=== PATIENT | female | born 1945 | race Hispanic/Latino ===

== ENCOUNTER 2024-03-02 11:00 | Inpatient (IN) | payer OTHER, MEDICARE ==
[~2024-03-02] VITALS: Ht 160 cm; Wt 76.7 kg
[2024-03-05 14:07] LABS: BASOPHILS # (AUTO) 0.04 K/uL (0.00-0.20); BASOPHILS % (AUTO) 0.7 % (0.0-5.0); EOSINOPHILS # (AUTO) 0.14 K/uL (0.00-0.70); EOSINOPHILS % (AUTO) 2.5 % (0.0-8.0); HEMATOCRIT 37.5 % (36-48); IMMATURE GRANULOCYTE ABSOLUTE 0.03 K/uL (0-1); LYMPHOCYTES # (AUTO) 2.2 K/uL (1.0-4.8); LYMPHOCYTES % (AUTO) 39.2 % (21.0-51.0); MEAN CORPUSCULAR HEMOGLOBIN 30.5 pg (27.0-33.0); MEAN CORPUSCULAR HGB CONC 32.5 g/dL (32.0-36.0); MEAN CORPUSCULAR VOLUME 93.8 fL (79-99); MONOCYTES # (AUTO) 0.5 K/uL (0.1-1.0); MONOCYTES % (AUTO) 9.6 % (3.0-13.0); NEUTROPHILS # (AUTO) 2.7 K/uL (1.8-7.7); NEUTROPHILS % (AUTO) 47.5 % (40.0-77.0); PLATELET COUNT (AUTO) 270 K/uL (130-400); RED CELL DISTRIBUTION WIDTH 13.8 % (11.0-15.5); WHITE BLOOD COUNT (AUTO) 5.6 K/uL (4.8-10.8)
[2024-03-05 14:16] VITALS: BP 118/82; PULSE 78; RESP 16
[2024-03-05] MEDS ORDERED: MIRA25TA PO (14:20)
[2024-03-05] MEDS ORDERED: LOSA25TA41 PO (14:20)
[2024-03-05] MEDS ORDERED: BETA1TAB20 PO (14:20)
[2024-03-05] MEDS ORDERED: MECL-226 PO (14:20)
[2024-03-05] MEDS ORDERED: SIMV-46 PO (14:20)
[2024-03-05 14:21] LABS: PROTHROMBIN TIME 11.8 SEC (9.6-11.6)
[2024-03-05 14:22] LABS: PARTIAL THROMBOPLASTIN TIME 28.6 SEC (26.3-35.5)
[2024-03-05 14:27] LABS: ALBUMIN 3.7 g/dL (3.5-5.0); BILIRUBIN,TOTAL 0.5 mg/dL (0.2-1.0); CREATININE 0.7 mg/dL (0.5-1.0); TOTAL PROTEIN, SERUM 7.1 g/dL (6.0-8.3)
[2024-03-07] VITALS (20 sets, daily range): BP systolic 117–150; BP diastolic 74–90; PULSE 64–95; RESP 14–20; O2SAT 97–99
[2024-03-07] MEDS ORDERED: INVANZ 1GM+NS 50ML IVPB 50 ML IV ONE (07:00)
[2024-03-07] MEDS ORDERED: FAMOTIDINE 20MG VIAL IV ONE (07:13)
[2024-03-07] MEDS ORDERED: HYDROMORPHONE 1 MG INJ ONE (07:13)
[2024-03-07] MEDS ORDERED: PHENYLEPHRINE HCL 10 MG/ML 1ML VIAL IV ONE ×2 (07:18→09:29)
[2024-03-07] MEDS ORDERED: ROCURONIUM BROMIDE 10MG/1ML 5ML VL ONE (07:20)
[2024-03-07] MEDS ORDERED: NEOSTIGMINE METHYLSULFATE 1MG/ML IV ONE (07:20)
[2024-03-07] MEDS ORDERED: LIDOCAINE PF 100MG/5ML (2%) SYRINGE 5ML ONE (07:20)
[2024-03-07] MEDS ORDERED: FENTANYL CITRATE PF 50 MCG/1 ML 2ML VIAL ONE ×2 (07:20→09:23)
[2024-03-07] MEDS ORDERED: GLYCOPYRROLATE 0.2 MG/ML 5 ML VIAL ONE (07:20)
[2024-03-07] MEDS ORDERED: PROPOFOL 10 MG/ML 20ML VIAL IV ONE (07:20)
[2024-03-07] MEDS ORDERED: ONDANSETRON 4MG INJ ONE (07:20)
[2024-03-07] MEDS ORDERED: LACTATED RINGERS 1000ML 1,000 ML IV ONE (07:51)
[2024-03-07] MEDS: BUPIVACAINE/PF 0.5% 30ML VIAL ONE (08:44)
[2024-03-07] MEDS: LIDOCAINE 1%-EPI 1:100,000 20 ML VIAL ONE (08:44)
[2024-03-07] MEDS ORDERED: INDOCYANINE GREEN 25 MG VIAL IJ ONE (10:07)
[2024-03-07] MEDS ORDERED: INSULIN HUMULIN R 100 UNIT/ML 3ML SQ PRN (11:30)
[2024-03-07] MEDS: FENTANYL CITRATE PF 50 MCG/1 ML 2ML VIAL ONE (11:39)
[2024-03-07] MEDS: ONDANSETRON 4MG INJ IVP PRN (13:44)
[2024-03-07] MEDS: HYDROCODONE/ACETAMINOPHEN 5/325 MG TAB PO PRN (13:44)
[2024-03-07] MEDS: MORPHINE 4 MG SYG IV PRN (17:53)
[2024-03-07] MEDS: FAMOTIDINE 20MG VIAL IV SCH (20:21)
[2024-03-07] MEDS ORDERED: HYDR12.54 PO (22:29)
[2024-03-07] MEDS ORDERED: LOSA50TA64 PO (22:29)
[2024-03-08] VITALS (8 sets, daily range): BP systolic 119–153; BP diastolic 62–84; PULSE 65–90; RESP 17–18; O2SAT 94–97
[2024-03-08] MEDS ORDERED: MAGNESIUM 2GM PREMIX 50ML 50 ML IV PRN (00:30)
[2024-03-08] MEDS ORDERED: POTASSIUM CHLORIDE 20MEQ/100ML 100 ML IV PRN ×2 (00:30)
[2024-03-08] MEDS ORDERED: POTASSIUM CHLORIDE 10% ELIXIR 20 MEQ/15 ML UDCUP PO PRN (00:30)
[2024-03-08] MEDS: D5W-1/2 NS/20MEQ KCL 1,000 ML IV SCH (03:44)
[2024-03-08 05:18] LABS: BASOPHILS # (AUTO) 0.02 K/uL (0.00-0.20); BASOPHILS % (AUTO) 0.3 % (0.0-5.0); EOSINOPHILS # (AUTO) 0.01 K/uL (0.00-0.70); EOSINOPHILS % (AUTO) 0.1 % (0.0-8.0); HEMATOCRIT 33.7 % (36-48); IMMATURE GRANULOCYTE ABSOLUTE 0.04 K/uL (0-1); LYMPHOCYTES # (AUTO) 1.2 K/uL (1.0-4.8); LYMPHOCYTES % (AUTO) 15.9 % (21.0-51.0); MEAN CORPUSCULAR HEMOGLOBIN 30.9 pg (27.0-33.0); MEAN CORPUSCULAR HGB CONC 33.2 g/dL (32.0-36.0); MEAN CORPUSCULAR VOLUME 92.8 fL (79-99); MONOCYTES # (AUTO) 0.7 K/uL (0.1-1.0); MONOCYTES % (AUTO) 9.4 % (3.0-13.0); NEUTROPHILS # (AUTO) 5.7 K/uL (1.8-7.7); NEUTROPHILS % (AUTO) 73.8 % (40.0-77.0); PLATELET COUNT (AUTO) 233 K/uL (130-400); RED BLOOD CELL COUNT(AUTO) 3.63 MIL/uL (4.00-5.50); WHITE BLOOD COUNT (AUTO) 7.8 K/uL (4.8-10.8)
[2024-03-08 06:10] LABS: CREATININE 0.7 mg/dL (0.5-1.0); POTASSIUM 3.3 mmol/L (3.5-5.1)
[2024-03-08] MEDS: KCL 20 MEQ ERTAB PO PRN (06:25)
[2024-03-08] MEDS: ENOXAPARIN SODIUM 40 MG/0.4 ML SYRINGE SQ SCH (08:26)
[2024-03-08] MEDS: MAGNESIUM 2GM PREMIX 50ML 50 ML IV PRN (15:56)
[2024-03-09 00:53] VITALS: BP 158/88; PULSE 85; RESP 18
[2024-03-09] MEDS: ACETAMINOPHEN 325 MG TAB PO PRN (02:16)
[2024-03-09 05:32] LABS: BASOPHILS # (AUTO) 0.04 K/uL (0.00-0.20); BASOPHILS % (AUTO) 0.4 % (0.0-5.0); EOSINOPHILS # (AUTO) 0.15 K/uL (0.00-0.70); EOSINOPHILS % (AUTO) 1.6 % (0.0-8.0); HEMATOCRIT 35.9 % (36-48); IMMATURE GRANULOCYTE ABSOLUTE 0.04 K/uL (0-1); LYMPHOCYTES # (AUTO) 2.1 K/uL (1.0-4.8); LYMPHOCYTES % (AUTO) 22.1 % (21.0-51.0); MEAN CORPUSCULAR HEMOGLOBIN 30.1 pg (27.0-33.0); MEAN CORPUSCULAR HGB CONC 31.5 g/dL (32.0-36.0); MEAN CORPUSCULAR VOLUME 95.5 fL (79-99); MONOCYTES # (AUTO) 0.9 K/uL (0.1-1.0); MONOCYTES % (AUTO) 9.3 % (3.0-13.0); NEUTROPHILS # (AUTO) 6.2 K/uL (1.8-7.7); NEUTROPHILS % (AUTO) 66.2 % (40.0-77.0); PLATELET COUNT (AUTO) 254 K/uL (130-400); RED BLOOD CELL COUNT(AUTO) 3.76 MIL/uL (4.00-5.50); RED CELL DISTRIBUTION WIDTH 14.5 % (11.0-15.5); WHITE BLOOD COUNT (AUTO) 9.3 K/uL (4.8-10.8)
[2024-03-09 05:36] LABS: CREATININE 0.7 mg/dL (0.5-1.0); MAGNESIUM 2.4 mg/dL (1.80-2.40); POTASSIUM 4.2 mmol/L (3.5-5.1)
[2024-03-09 08:00] VITALS: BP 151/80; PULSE 86; RESP 18; O2SAT 97
[2024-03-09 12:00] VITALS: BP 146/83; PULSE 95; RESP 18
== END 2024-03-09 16:00 | disposition home or self-care (01) | DRG 331 ==
LOC: DAHIP 03-07 05:39 → 3AH 03-07 12:25
PROVIDERS: ADMIT Surgery; ATTEND Surgery
PROC: 0DBP4ZZ Excision of Rectum, Percutaneous Endoscopic Approach (ICD-10-PCS; 2024-03-07)
PROC: 8E0W4CZ Robotic Assisted Procedure of Trunk Region, Percutaneous Endoscopic Approach (ICD-10-PCS; 2024-03-07)
PROC: 0DJD8ZZ Inspection of Lower Intestinal Tract, Via Natural or Artificial Opening Endoscopic (ICD-10-PCS; 2024-03-07)
PROC: 0DTN4ZZ Resection of Sigmoid Colon, Percutaneous Endoscopic Approach (ICD-10-PCS; principal; 2024-03-07 07:30)
DX: K57.32 Diverticulitis of large intestine without perforation or abscess without bleeding (principal); N32.81 Overactive bladder; E78.5 Hyperlipidemia, unspecified; I10 Essential (primary) hypertension; E78.00 Pure hypercholesterolemia, unspecified; K59.00 Constipation, unspecified; Z83.3 Family history of diabetes mellitus
CPT/HCPCS: 36415; 45330; 80048; 80053; 80061; 82948; 83036; 83735; 85025; 85610; 85730; 86850; 86900; 86901; 93005; A4344; G0378; J1170; J1335; J1650; J2001; J2270; J2371; J2405; J2704; J2710; J3010; J3475; J3480; J3490; J7120; A4215; A4221; A4222; A4223; A4600; A4649; A4663; A4930; A6260; C1769; G0168; J0665